=== PATIENT | female | born 1965 | race American Indian/Alaskan Native ===

== ENCOUNTER 2016-11-03 14:15 | Emergency (ER) | payer BC, OTHER ==
[2016-11-03 15:35] VITALS: BP 139/69
[2016-11-03] MEDS ORDERED: NACL 0.9% 500 ML IR ONE (19:17)
[2016-11-03] MEDS ORDERED: NACL 0.9% IR ONE (19:18)
[2016-11-03] MEDS ORDERED: ULTRAM PO ONE (20:34)
[2016-11-03] MEDS ORDERED: BOOSTRIX IM ONE (20:35)
--- NOTE | 2016-11-03 22:36 | Emergency Department Report ---
ED Laceration HPI - [facility] Chief Complaint: Wound/Laceration Stated Complaint: L THUMB LAC ED Review of Systems ROS: Stated complaint: L THUMB LAC Other details as noted in HPI ED Past Medical Hx - Past Medical History Hx Seizures: Yes (phenobarb) - Surgical History Additional Surgical History: CRAINIOTOMY AT AGE 5 - Social History Smoking Status: Never Smoker Substance Use Type: None - Medications Home Medications: Home Medications Medication Instructions Recorded Confirmed Last Taken Type Cephalexin [Keflex] 250 mg PO Q6H #40 capsule 09/03/14 Unknown Rx Ibuprofen [Motrin] 800 mg PO Q8H PRN #30 tablet 09/03/14 Unknown Rx lamiVUDine/ZIDOVUDINE [Combivir 1 each PO BID #6 tablet 09/03/14 Unknown Rx 150/300Mg] Laceration Physical Exam - Exam General: Vital signs noted. No distress. Alert and acting appropriately. ED Course Vital Signs 11/03/16 15:22 Temperature 97.9 F Pulse Rate 61 Respiratory 16 Rate Blood Pressure 139/69 O2 Sat by Pulse 100 Oximetry Critical care attestation.: If time is entered above; I have spent that time in minutes in the direct care of this critically ill patient, excluding procedure time. ED Disposition Disposition: DC-01 TO HOME OR SELFCARE Condition: Stable Instructions: Laceration (ED) Referrals: PRIMARY CARE, [Primary Care Provider] - 3-5 Days Forms: Work/School Release Form(ED)
--- NOTE | 2016-11-04 09:38 | XRay Report ---
LEFT FINGERS, 3 VIEWS History: Left hand pain and swelling, thumb injury. Findings: Normal bone mineralization. No acute osseous findings or joint pathology is detected. The soft tissues are within normal limits. No significant change since 09/03/14. Impression: Left fingers within normal limits.
== END 2016-11-03 22:09 | disposition home or self-care (01) ==
LOC: ED 14:15
DX: S61.012A Laceration without foreign body of left thumb without damage to nail, initial encounter (principal); X58.XXXA Exposure to other specified factors, initial encounter; Y93.9 Activity, unspecified; Y92.9 Unspecified place or not applicable; Y99.9 Unspecified external cause status
CPT/HCPCS: 90471; 90715